=== PATIENT | male | born 1955 | race Caucasian/White ===

== ENCOUNTER → 2023-11-21 08:48 | Outpatient (REF) | payer MEDICARE, SELFPAY | LOC: RAD 08:48 | PROVIDERS: ATTENDING PHYSICIAN Student in an Organized Health Care Education/Training Program | DX: E11.42 Type 2 diabetes mellitus with diabetic polyneuropathy (principal); R09.89 Other specified symptoms and signs involving the circulatory and respiratory systems | CPT/HCPCS: 93922; 93925 ==